=== PATIENT | male | born 1960 | race Caucasian/White ===

== ENCOUNTER 2016-05-13 21:53 | Emergency (ER) | payer OTHER ==
[~2016-05-13] VITALS: Ht 180.3 cm; Wt 117.4 kg
[2016-05-13] MEDS ORDERED: FAMOTIDINE 20 MG TABLET PO ONE (22:30)
[2016-05-13] MEDS ORDERED: ONDANSETRON ODT 8 MG PO PRN (22:30)
[2016-05-13] MEDS ORDERED: FAMOTIDINE 20 MG TABLET ONE (22:37)
[2016-05-13] MEDS ORDERED: ONDANSETRON ODT 8 MG ONE (22:37)
[2016-05-13] MEDS ORDERED: CARB200T13 PO (23:59)
[2016-05-13] MEDS ORDERED: OMEP-110 PO (23:59)
[2016-05-13] MEDS ORDERED: ASPI-496 PO (23:59)
[2016-05-13] MEDS ORDERED: ALLO100T30 PO (23:59)
[2016-05-13] MEDS ORDERED: METO25TA35 PO (23:59)
[2016-05-13] MEDS ORDERED: SIMV40TA3 PO (23:59)
[2016-05-13] MEDS ORDERED: LISI-167 PO (23:59)
[2016-05-14 00:16] VITALS: BP 116/61
== END 2016-05-14 00:19 | disposition home or self-care (01) ==
LOC: ED 23:59
DX: T78.3XXA Angioneurotic edema, initial encounter (principal); T78.1XXA Other adverse food reactions, not elsewhere classified, initial encounter; I25.2 Old myocardial infarction; Z91.013 Allergy to seafood; Z88.0 Allergy status to penicillin; X58.XXXA Exposure to other specified factors, initial encounter; Y93.89 Activity, other specified; Y99.8 Other external cause status; Y92.89 Other specified places as the place of occurrence of the external cause
CPT/HCPCS: 99284; J7512; Q0162